=== PATIENT | female | born 1980 | race African-American/Black ===

== ENCOUNTER 2022-09-26 23:20 | Emergency (ER) | payer MEDICAID ==
[~2022-09-26] VITALS: Ht 175.3 cm; Wt 76.2 kg
[2022-09-26 23:39] VITALS: BP 114/74
--- NOTE | 2022-09-26 23:59 | NUR ---
Patient taken to x-ray.
[2022-09-27] MEDS ORDERED: MORPHINE SULFATE 4 MG/ML SYR ONE (00:14)
--- NOTE | 2022-09-27 01:31 | NUR ---
Dr. Herman examining patient.
[2022-09-27] MEDS ORDERED: NAPR-54 PO (01:36)
[2022-09-27 01:38] VITALS: BP 114/74
--- NOTE | 2022-09-27 01:38 | NUR ---
Patient discharged with v/s stable. Written and verbal after care instructions given and explained by Dr. Herman. Patient alert, oriented and verbalized understanding of instructions. Ambulatory with steady gait. All questions addressed prior to discharge. ID band removed. Patient advised to follow up with PMD. Rx of Naproxen given. Patient educated on indication of medication including possible reaction and side effects. Opportunity to ask questions provided and answered.
== END 2022-09-27 01:38 | disposition home or self-care (01) ==
LOC: MED 23:20
DX: S69.82XA Other specified injuries of left wrist, hand and finger(s), initial encounter (principal); Z79.899 Other long term (current) drug therapy; X58.XXXA Exposure to other specified factors, initial encounter; Y93.89 Activity, other specified; Y92.89 Other specified places as the place of occurrence of the external cause; Y99.8 Other external cause status
CPT/HCPCS: 73140; 99283; J2270

== ENCOUNTER 2023-11-28 23:48 | Emergency (ER) | payer MEDICAID ==
[~2023-11-28] VITALS: Ht 177.8 cm; Wt 109.0 kg
[~2023-11-28 23:48] MED LIST: NAPR-54 PO
[2023-11-29 00:20] VITALS: BP 139/88; PULSE 76; RESP 17; TEMP 97.8; O2SAT 100
[2023-11-29 01:09] LABS: APPEARANCE,URINE CLEAR (CLEAR); BILIRUBIN,URINE NEGATIVE (NEGATIVE); BLOOD, URINE TRACE-I (NEGATIVE); COLOR,URINE YELLOW (YELLOW); LEUKOCYTE ESTERASE ,URINE NEGATIVE (NEGATIVE); NITRITE, URINE NEGATIVE (NEGATIVE); PROTEIN,URINE NEGATIVE (NEGATIVE); UGLUCOSE NEGATIVE (NEGATIVE); UROBILINOGEN,URINE 0.2 EU/dL (0.2 - 1)
[2023-11-29 01:15] LABS: BASOPHILS % (AUTO) 0.4 % (0.0-2.0); EOSINOPHILS % (AUTO) 0.5 % (0.0-4.0); HEMATOCRIT 34.7 % (36-48); HEMOGLOBIN 11.9 g/dL (12.0-16.0); LYMPHOCYTES # (AUTO) 1.5 K/uL (2.5-16.5); LYMPHOCYTES % (AUTO) 29.3 % (20.5-51.1); MEAN CORPUSCULAR HEMOGLOBIN 30 pg (27-31); MEAN CORPUSCULAR HGB CONC 34 g/dL (33-37); MEAN CORPUSCULAR VOLUME 86.9 fL (80-94); MONOCYTES # (AUTO) 0.7 K/uL (0.8-1.0); MONOCYTES % (AUTO) 13.6 % (1.7-9.3); NEUTROPHILS % (AUTO) 56.2 % (42.2-75.2); PLATELET COUNT (AUTO) 202 K/uL (140-450); RED BLOOD CELL COUNT(AUTO) 3.99 MIL/uL (4.20-5.40); RED CELL DISTRIBUTION WIDTH 13.6 % (11.6-13.7); WHITE BLOOD COUNT (AUTO) 5.3 K/uL (4.8-10.8)
[2023-11-29 01:18] LABS: BACTERIA,URINE FEW /HPF (None Seen); MUCUS,URINE 1+ /LPF (None Seen); RBC,URINE 0-5 /HPF (0-5); SQUAMOUS EPITHELIAL CELL,UR 0-3 (FEW) /LPF (0-3 (FEW)); WBC,URINE 0-5 /HPF (0-5)
[2023-11-29 04:22] VITALS: BP 139/88; PULSE 76; RESP 17; TEMP 97.8; O2SAT 100
== END 2023-11-29 04:15 | disposition home or self-care (01) ==
LOC: MED 23:48
DX: O20.0 Threatened abortion (principal); Z3A.10 10 weeks gestation of pregnancy; Z79.1 Long term (current) use of non-steroidal anti-inflammatories (NSAID)
CPT/HCPCS: 36415; 76817; 81001; 81025; 84702; 85025; 86900; 86901; 99284

== ENCOUNTER 2024-03-13 19:20 | Observation (INO) | payer MEDICAID ==
[~2024-03-13] VITALS: Ht 177.8 cm; Wt 113.4 kg
[~2024-03-13 19:20] MED LIST changes: +NAPR-337 PO; -NAPR-54 PO
[2024-03-13 19:42] VITALS: BP 118/76; PULSE 92; RESP 18; TEMP 97.9
[2024-03-13] MEDS ORDERED: NACL 0.9% 500 ML IV SCH (20:05)
[2024-03-13] MEDS: NACL 0.9% 1,000 ML IV ONE (20:14)
[2024-03-13] MEDS: ONDANSETRON 4 MG/2 ML VIAL IVP PRN (20:22)
[2024-03-13] MEDS: cefTRIAXone 1,000 MG VIAL ONE (20:26)
== END 2024-03-13 22:15 | disposition home or self-care (01) ==
LOC: MLD 19:20
PROVIDERS: ADMIT Obstetrics & Gynecology; ATTEND Obstetrics & Gynecology
DX: O26.892 Other specified pregnancy related conditions, second trimester (principal); R10.9 Unspecified abdominal pain; Z3A.25 25 weeks gestation of pregnancy
CPT/HCPCS: 96365; 96375; G0378; G0379; J0696; J2405; J7030; J7060